=== PATIENT | female | born 1930 | race Hispanic/Latino ===

== ENCOUNTER 2018-03-28 08:20 | Day surgery (SDC) | payer OTHER ==
[~2018-03-28] VITALS: Ht 154.9 cm; Wt 51.5 kg
[~2018-03-28 08:20] MED LIST: CITA-107 PO; ERGO500014 PO; LEVO50TA11 PO; LOSA100T20 PO; ROSU10TA27 PO; SODIUM CHLORIDE 0.9% 1000ML 1,000 ML IV ONE; SPIR25TA PO
[2018-03-28 08:56] VITALS: BP 170/74
[2018-03-28 10:21] VITALS: BP 106/42
[2018-03-28 10:26] VITALS: BP 125/50
[2018-03-28 10:32] VITALS: BP 157/67
[2018-03-28 10:38] VITALS: BP 161/60
== END 2018-03-28 10:53 | disposition home or self-care (01) ==
LOC: DAH 08:20 → ENDO 08:20
PROVIDERS: ATTEND Internal Medicine Gastroenterology
DX: K21.0 Gastro-esophageal reflux disease with esophagitis (principal); K22.2 Esophageal obstruction; K44.9 Diaphragmatic hernia without obstruction or gangrene; I10 Essential (primary) hypertension; Z90.710 Acquired absence of both cervix and uterus; Z79.899 Other long term (current) drug therapy; F32.9 Major depressive disorder, single episode, unspecified; E78.5 Hyperlipidemia, unspecified; E03.2 Hypothyroidism due to medicaments and other exogenous substances
CPT/HCPCS: 43239; 43249; 88305; 93005; A4606; C1725; J7030; 43235

== ENCOUNTER 2018-04-18 05:30 | Day surgery (SDC) | payer OTHER ==
[2018-04-18] VITALS (8 sets, daily range): BP systolic 84–157; BP diastolic 34–71
[~2018-04-18] VITALS: Ht 154.9 cm; Wt 52.3 kg
[~2018-04-18 05:30] MED LIST changes: -SODIUM CHLORIDE 0.9% 1000ML 1,000 ML IV ONE
[2018-04-18] MEDS ORDERED: SODIUM CHLORIDE 0.9% 1000ML 1,000 ML IV ONE (05:46)
[2018-04-18] MEDS ORDERED: AMLO5TAB7 PO (06:28)
[2018-04-18] MEDS ORDERED: PROPOFOL 10 MG/ML 20ML VIAL IV ONE (07:07)
[2018-04-18] MEDS ORDERED: PHENYLEPHRINE HCL 10 MG/ML 1ML VIAL IV ONE (07:07)
[2018-04-18] MEDS ORDERED: LIDOCAINE HCL 1% 20 ML VIAL ONE (07:13)
== END 2018-04-18 08:06 | disposition home or self-care (01) ==
LOC: DAH 05:30 → ENDO 05:30
PROVIDERS: ATTEND Internal Medicine Gastroenterology
DX: K29.50 Unspecified chronic gastritis without bleeding (principal); K21.0 Gastro-esophageal reflux disease with esophagitis; I10 Essential (primary) hypertension; Z79.899 Other long term (current) drug therapy; Z90.710 Acquired absence of both cervix and uterus; K44.9 Diaphragmatic hernia without obstruction or gangrene; F32.9 Major depressive disorder, single episode, unspecified; E78.5 Hyperlipidemia, unspecified; E03.9 Hypothyroidism, unspecified; K22.2 Esophageal obstruction
CPT/HCPCS: 43239; 43249; 88305; A4606; J2370; J2704; J7030

== ENCOUNTER → 2018-06-06 | Outpatient (CLI) | payer OTHER ==
[~2018-06-06] MED LIST changes: +AMLO5TAB9 PO; -LOSA100T20 PO; +LOSA100T58 PO
== END | disposition home or self-care (01) ==
LOC: RAH 09:47
PROVIDERS: ATTEND Family Medicine
DX: R92.8 Other abnormal and inconclusive findings on diagnostic imaging of breast (principal)
CPT/HCPCS: 77065